=== PATIENT | female | born 1990 | race Caucasian/White ===

== ENCOUNTER → 2020-12-05 17:45 | Outpatient (BNVA) | payer MEDICAID, SELFPAY | PROVIDERS: Visit Provider Nurse Practitioner | DX: M25.571 Pain in right ankle and joints of right foot (principal); M79.89 Other specified soft tissue disorders | CPT/HCPCS: 73610 ==

== ENCOUNTER 2021-06-15 09:03 | Emergency (ER) | payer MEDICAID, SELFPAY ==
[2021-06-15 09:16] VITALS: BP 121/66; PULSE 101; RESP 20; TEMP 37.1; O2SAT 100; BMI 23.7
--- NOTE | 2021-06-15 09:21 | ED_ITS ---
HPI - Dental/Oral General: Chief complaint: Dental/Oral Stated complaint: Tooth ache Time Seen by Provider: 06/15/21 09:05 Source: patient Mode of arrival: ambulatory Limitations: no limitations History of Present Illness: Patient is a 30-year-old female presents to ED today with a complaint of a left lower toothache. Patient states the tooth has been cracked for a long time but recently over the past couple of days has become very painful. She has not noticed any swelling. Patient states she does not have a dentist. She has been taking OTC Tylenol and Motrin for discomfort. MD Complaint: tooth pain Teeth map: 1. Onset (ago): day(s) Duration: constant Severity: severe Relieving factors: nothing Exacerbating factors: chewing Context: history of dental caries, trauma (mechanism) and poor dental care Associated symptoms: Reports no associated symptoms; Denies ear or mastoid pain, fever(s) or odynophagia Treatment prior to arrival: oral analgesic Review of Systems Const: Denies: fever(s), chills, body aches, fatigue or malaise Eyes: Denies: change in vision or blurry vision ENMT: Reports: dental pain; Denies: throat pain, odynophagia, swelling of lips/tongue, oral sores, ear or mastoid pain, nasal discharge or nasal congestion Card: Denies: chest pain Resp: Denies: dyspnea GI: Denies: nausea or vomiting Musc: Denies: neck pain Skin/Breast: Denies: rash Neuro: Denies: headache(s) PFS ED PFSH: Social History Smoking and tobacco status: current every day smoker Female Reproductive History: Date of last menstrual period: 06/08/21 Physical Exam Const: COMMON NORMALS: no acute distress, patient oriented x3, no limitations, alert and well nourished GENERAL APPEARANCE: cooperative ORIENTATION/CONS CIOUSNESS: Yes awake, Yes oriented to person, Yes oriented to place and Yes oriented to time HENMT: COMMON NORMALS: normocephalic and Normal external nose present HEAD & SCALP: normal to inspection and normocephalic FACE & SINUS: normal facial exam NOSE: Normal external nose present MOUTH: Normal oral and palatal mucosa present, lip normal and tongue normal TEETH & GINGIVA: Yes poor dentition TEETH & GINGIVA IMAGES: 1. severe decay; no surrounding swelling/abscess f ormation THROAT: posterior oropharynx normal, tonsils normal and uvula midline Eye: GENERAL EYE: appearance normal, both eyes and all related structures Neck/C-Spine: COMMON NORMALS: full ROM and no lymphadenopathy Neuro: COMMON NORMALS: patient oriented x3 SENSORIUM/ORIENTATION: Yes alert, Yes oriented to person, Yes oriented to place and Yes oriented to time Course Vital Signs: Vital signs: Vital Signs Temperature 98.7 F 06/15/21 09:16 Pulse Rate 101 H 06/15/21 09:16 Respiratory Rate 20 H 06/15/21 09:16 Blood Pressure 121/66 06/15/21 09:16 Pulse Oximetry 100 06/15/21 09:16 [facility] - Dental/Oral Medical Decision Making Patient reports a possible history of . She states she did have a positive home test. Will place patient on antibiotic safe for . Recommended no NSAIDs at this time secondary to possibility for . Patient was given dental resources and recommended prompt follow-up. Will place referrals for primary care and OB at this time. Discharge Plan Discharge Patient Disposition: Home Clinical Impression: Toothache, Dental caries Condition: Stable Prescriptions: New penicillin V potassium 500 mg tablet 500 mg PO Q8H 7 Days Qty: 21 0RF No Action pantoprazole [Protonix] 40 mg tablet,delayed release (DR/EC) 40 mg PO DAILY 0RF PROSIN PO 0RF albuterol sulfate [Ventolin HFA] 90 mcg/actuation HFA aerosol inhaler 2 puff inhalation Q6H PRN (Reason: shortness of breath or wheezing) Qty: 8.5 0RF montelukast [Singulair] 10 mg tablet 10 mg PO DAILY Qty: 60 0RF Discharge Orders: Discharge ED (Routine); Ordered 06/15/21 Ordered By: Maddie Carver Patient Instructions: Dental Caries (Cavities), Toothache (ED) Coding Level of Care Code ED [facility] Supervisor for Chg Fwd Exam Expanded Problem Focused
[2021-06-15 09:33] VITALS: BP 120/68; PULSE 97; RESP 20; TEMP 37.1; O2SAT 100
--- NOTE | 2021-06-15 10:54 | DCPLANNER ---
Addendum entered by Sindhu Bloom 07/14/21 09:07: Patient had a follow up appointment scheduled for 07.05.21 with [facility] - patient did not attend appointment. Addendum entered by Sindhu Bloom 06/16/21 15:05: Patient has a follow up appointment scheduled for Monday, July 05, 2021 at 2:00 with [facility] Martha Perdomo. Clinic will call patient with appointment information. Addendum entered by Sindhu Bloom 06/15/21 11:03: assistant center manager also had message to speak with patient about getting a primary care physician. Patient stated that she wanted sql manager to make the referral to [facility], and wanted to wait on the primary care physician at this time. Original Note: assistant center manager had message to schedule a follow up appointment for patient with [facility]. assistant center manager called [facility], spoke with Melchor, gave clinic patients information. assistant center manager was told that patients information would be printed and reviewed. Clinic will call patient with appointment information.
== END 2021-06-15 09:36 | disposition home or self-care (01) ==
LOC: ER 09:39
PROVIDERS: Emergency Provider Physician Assistant
DX: K02.9 Dental caries, unspecified (principal); F17.210 Nicotine dependence, cigarettes, uncomplicated
CPT/HCPCS: 99281

== ENCOUNTER 2022-03-09 17:08 | Emergency (ER) | payer MEDICAID, SELFPAY ==
[2022-03-09 17:20] VITALS: PULSE 79; RESP 16; TEMP 36.8; O2SAT 100
--- NOTE | 2022-03-09 17:34 | ED_ITS ---
HPI - Headache General: Chief Complaint: Headache Stated Complaint: Headpain, states she has addiction problems Time Seen by Provider: 03/09/22 17:23 History of Present Illness: 31 yo female patient presents to ER with typical migraine headache. Pt states lasted 2 days and regular meds are not helping. c/o nausea but no vomiting. denies any fever. Denies any visual changes Associated symptoms: Deny chest pain, confusion, diaphoresis, fever(s), lightheadedness, malaise, pre-syncope, rash, syncope or vomiting Review of Systems Const: Denies: fever(s), chills, body aches, change in appetite, change in weight, fatigue, malaise or diaphoresis Eyes: Denies: change in vision, blurry vision, blind spots, photophobia, eye discomfort, eye discharge, eye redness, floaters or seeing flashes ENMT: Denies: throat pain, uvular edema, enlarged tonsils, odynophagia, hoarseness, mouth pain, swelling of lips/tongue, oral sores, bleeding gums, dental pain, dry mouth, ear or mastoid pain, ear discharge, change in hearing, tinnitus, disequilibrium, nasal discharge, nasal congestion, post nasal drip or sinus pain Card: Denies: chest pain, palpitations, irregular heart rhythm, edema, swelling of feet/ankles, lightheadedness, syncope, pre-syncope, dyspnea on exertion, orthopnea, leg pain with exertion or acrocyanosis Resp: Denies: dyspnea, productive cough, non-productive cough, wheezing, stridor, pain on inspiration, change in phlegm color, hemoptysis or chest congestion GI: Denies: abdominal pain, vomiting, hematemesis, dysphagia, diarrhea, constipation, GI cramping, change in bowel habits or rectal pain : Denies: flank pain, difficulty voiding, dysuria, urinary frequency, urinary urgency, urinary hesitancy or hematuria Musc: Denies: neck pain, back pain, extremity pain, extremity swelling, joint pain, joint swelling, joint redness, joint warmth or deformity Skin/Breast: Denies: rash, pruritus, erythema, sores, new lesions, changes in skin color or dry skin Neuro: Denies: numbness in extremities, weakness in extremities, sensory changes, lack of coordination, difficulty walking, frequent falls, dizziness, vertigo, confusion, behavioral changes, Slurred speech present, difficulty communicating thoughts or seizure-like activity Psych: Denies: anxiety, depression, suicidal ideation or homicidal ideation Endo: Denies: polyuria, polydipsia, tired all the time, cold intolerance, excessive sweating, flushing, hot flashes or heat intolerance Mj/Lymph: Denies: easy bruising, easy bleeding, petechiae, purpura, enlarged lymph nodes or tender lymph nodes All/Imm: Denies: urticaria, throat swelling, tongue swelling, facial swelling, acute wheezing or itchy eyes PFSH ED PFSH: Medical History Psoriasis Surgical History History of repair of hiatal hernia Family History Denies family history of Colon cancer Ovarian cancer Diabetes Heart disease Hypercholesteremia Breast cancer Hypertension Uterine cancer Thyroid disease Stroke Social History Smoking and tobacco status: current every day smoker Female Reproductive History: Date of last menstrual period: 06/08/21 Physical Exam Const: COMMON NORMALS: no acute distress, patient oriented x3, healthy appearing, alert and well nourished GENERAL APPEARANCE: cooperative, comfortable, well kempt and well developed; not ill appearing ORIENTATION/CONSCIOUSNESS: Yes awake, Yes oriented to person, Yes oriented to place and Yes oriented to time HENMT: COMMON NORMALS: normocephalic, atraumatic, hearing grossly normal bilaterally, external ears normal, EAC's normal, TM's normal bilaterally, Normal external nose present, Normal nasal mucous membranes and turbinates present and moist oral mucous membranes HEAD & SCALP: normal to inspection, normocephalic and atraumatic FACE & SINUS: normal facial exam, sinuses nontender and face symmetric NOSE: Normal external nose present, Normal nares present, Normal nasal mucous membranes and turbinates present, No nasal discharge present and Abnormal external nose present EXTERNAL EAR: Yes external ears normal and Yes mastoids normal EXTERNAL AUDITORY CANAL: EAC's normal TYMPANIC MEMBRANE: TM's normal bilaterally MOUTH: Normal oral and palatal mucosa present, lip normal, tongue normal and Normal salivary glands and ducts present THROAT: no uvular edema Eye: COMMON NORMALS: Equal, round and reactive pupils present, EOMs intact bilaterally, conjunctivae normal, no scleral icterus and no papilledema GENERAL EYE: appearance normal, both eyes and all related structures EYELID: eyelids normal CONJUNCTIVA: Yes conjunctivae normal SCLERA: sclerae normal CORNEA: Yes corneas normal PUPIL: Yes Equal, round and reactive pupils present DIRECT OPHTHALMOSCOPY: Yes no papilledema Neck/C-Spine: COMMON NORMALS: full ROM, no lymphadenopathy, supple, no meningeal signs, no JVD and Thyroid normal GENERAL: Yes normal visual inspection and Yes trachea midline THYROID: Thyroid normal CERVICAL SPINE: Yes cervical ROM normal Lymph: LYMPHATIC: no lymphadenopathy noted and no lymphedema noted Chest: COMMONS NORMALS: normal inspection of the chest and normal palpation of entire chest wall Resp: COMMON NORMALS: normal respiratory effort, No retractions, No use of accessory muscles and clear to auscultation bilaterally EFFORT & INSPECTION: Yes able to speak in complete sentences and Yes symmetric chest movement AUSCULTATION: clear to auscultation bilaterally Cardio: COMMON NORMALS: no JVD, regular rate and regular rhythm RATE: regular rate RHYTHM: regular rhythm GI: COMMON NORMALS: Normal to inspection, nondistended, normoactive bowel sounds present, Soft to palpation, non-tender, No hepatosplenomegaly present, no masses and no bruits INSPECTION: Yes normal to inspection AUSCULTATION: Yes normoactive bowel sounds PALPATION: Yes Soft to palpation and Yes No hepatosplenomegaly present PERCUSSION: normal to percussion RECTAL EXAM: deferred : COMMON NORMALS: Yes no CVA tenderness, Yes normal external appearance, Yes normal appearance of the vagina, Yes normal appearance of the cervix, Yes normal bimanual exam, Yes No adnexal tenderness and Yes no masses BLADDER/KIDNEY EXAM: Yes no CVA tenderness BIMANUAL EXAM - VAGINA & UTERUS: Yes normal bimanual exam Back/Pelvis: COMMON NORMALS: no CVA tenderness, thoracic and lumbar spine normal to inspection, no thoracic nor lumbar tenderness, thoraco-lumbar ROM normal and straight leg raise negative bilaterally THORACIC SPINE/UPPER BACK: Yes normal to inspection LUMBAR SPINE/LOWER BACK: Yes normal to inspection Extremity: COMMON NORMALS: normal to inspection, full ROM and capillary refill normal GENERAL: Yes normal exam except as noted Neuro: COMMON NORMALS: patient oriented x3, CN's II-XII intact bilaterally, moves all extremities, no focal motor deficits, no sensory deficits noted, deep tendon reflexes 2+ bilaterally and gait normal SENSORIUM/ORIENTATION: Yes alert, Yes oriented to person, Yes oriented to place and Yes oriented to time MENINGEAL SIGNS: Yes no meningeal signs CRANIAL NERVES: Yes CN normal except as noted SPEECH: speech normal GAIT: Yes Normal gait present SENSORY EXAM: Yes extremities MOTOR EXAM: 5/5 motor strength present throughout Psych: COMMON NORMALS: mental status grossly normal, Normal thought process present, cooperative, normal affect, speech normal, activity/motor behavior normal, denies hallucinations, denies homicidal ideation and denies suicidal ideation APPEARANCE: Yes grossly normal and Yes well kempt ATTITUDE: Yes calm ACTIVITY/MOTOR BEHAVIOR: Yes appropriate eye contact SPEECH: Yes normal speech THOUGHT PROCESS: Normal thought process present THOUGHT CONTENT: Yes Normal thought content present ATTENTION/CONCENTRATION: Yes attention grossly intact MEMORY/COGNITION: Yes memory grossly intact INSIGHT: Good insight present (Psych) JUDGEMENT: Good judgement present (Psych) Skin: COMMON NORMALS: no rashes or lesions noted, no wounds, turgor normal, no jaundice, no petechiae and no mottling GENERAL SKIN EXAM: no rashes or lesions noted and turgor normal Course Vital Signs: Vital signs: Vital Signs Temperature 98.3 F 03/09/22 17:20 Pulse Rate 79 03/09/22 17:20 Respiratory Rate 16 03/09/22 17:20 Pulse Oximetry 100 03/09/22 17:20 Oxygen Delivery Me thod 03/09/22 17:20 MDM - Headache Medical Decision Making Patient is well appearing non toxic and in no acute distress. 31 yo female patient presents to ER with typical migraine headache. Pt states lasted 2 days and regular meds are not helping. c/o nausea but no vomiting. denies any fever. Denies any visual changes Pt states this is her typicla migraine heachache. Pt has no focal neuro deficits noted. Toradol zofran and decadron given IM and patient had good lcinical improvement with this. i discussed return precautions as well as home care and follow up Differential Diagnosis Likely migraine, tension headache, subarachnoid hemorrhage, headache, meningitis, sinusitis and postconcussion syndrome Lab Data Laboratory Results HCG, Qual Negative (Negative) 03/09/22 17:41 Urine Opiates Screen Negative ng/mL (Negative) 03/09/22 17:41 Ur Barbiturates Screen Negative ng/mL (Negative) 03/09/22 17:41 Ur Phencyclidine Scrn Negative ng/mL (Negative) 03/09/22 17:41 Ur Amphetamines Screen Negative ng/mL (Negative) 03/09/22 17:41 U Benzodiazepines Scrn Negative ng/mL (Negative) 03/09/22 17:41 Urine Cocaine Screen Negative ng/mL (Negative) 03/09/22 17:41 U Marijuana (THC) Screen Negative ng/mL (Negative) 03/09/22 17:41 Discharge Plan Discharge Patient Disposition: Home Clinical Impression: Migraine Condition: Stable Prescriptions: No Action methylprednisolone [Medrol (Randell)] 4 mg tablets,dose pack See Rx Instructions PO PER PKG DIR Qty: 21 0RF Rx Instructions: PO PER PKG DIR clobetasol 0.05 % ointment 1 applic topical BID 14 Days Qty: 60 0RF Discharge Orders: Discharge ED (Routine); Ordered 03/09/22 Ordered By: Shadia Pham Referrals: Tatyana Shah FNP [Primary Care Provider] - Discharge Diet: Advance as tolerated Discharge Activity: Resume usual activity Patient Instructions: Opioid Safety, Pain Management Activity Restrictions/Additional Instructions: Please return to ER with any worsening of symptoms Director Of Instruction will call you for referral Coding Level of Care Code ED Wound/Ostomy Nurse for Maria Guadalupe Pollard
[2022-03-09 17:53] LABS: HCG Qualitative Urine. Negative (Negative)
[2022-03-09] MEDS: ketorolac 60 mg/2 mL INJ IM (18:15)
[2022-03-09] MEDS: ondansetron 2 mg/ML SDV 2 mL 4 MG IM (18:15)
[2022-03-09] MEDS: dexamethasone 10 mg/mL INJ IM (18:15)
[2022-03-09 18:16] LABS: Amphetamines Screen Urine Negative (Negative); Barbiturates Screen Urine Negative (Negative); Benzodiazepines Screen Urine Negative (Negative); Cocaine Screen Urine Negative (Negative); Opiate Screen Urine Negative (Negative); PCP Screen Urine Negative (Negative); THC Screen Urine Negative (Negative)
== END 2022-03-09 18:37 | disposition home or self-care (01) ==
PROVIDERS: Emergency Provider Registered Nurse; PCP Nurse Practitioner Family
DX: G43.909 Migraine, unspecified, not intractable, without status migrainosus (principal); F17.210 Nicotine dependence, cigarettes, uncomplicated
CPT/HCPCS: 80306; 81025; 96372; 99284; J1100; J1885; J2405

== ENCOUNTER 2022-05-15 17:34 | Emergency (ER) | payer MEDICAID, SELFPAY ==
[2022-05-15] VITALS (7 sets, daily range): BP systolic 110–126; BP diastolic 58–84; PULSE 84–123; RESP 16–20; TEMP 37.1; O2SAT 95–97
--- NOTE | 2022-05-15 17:41 | ED_ITS ---
HPI - Altered Mental Status General: Chief Complaint: Altered Mental Status Stated Complaint: UNRESPONSIVE Time Seen by Provider: 05/15/22 17:41 Limitations: other History of Present Illness: Ms. Betancur is a 31-year-old lady without significant past medical history presented to the emergency department due to episode of unresponsiveness. She reports being at her baseline health and was watching TV. Her good friend, who was at bedside, returned from the store found her unresponsive with raspy respirations. She did respond to stimuli and since that time has gradually improved. No reported shaking, tongue biting, loss of consciousness. Patient currently feels back to baseline. She reports 1 similar episode in the past. No other specific changes in health, exacerbating, or alleviating factors identified. Onset (ago): minute(s) Review of Systems General: Reports: 10 or more systems reviewed and unremarkable except in HPI and below PFSH ED PFSH: Medical History Psoriasis Surgical History History of repair of hiatal hernia Family History Denies family history of Colon cancer Ovarian cancer Diabetes Heart disease Hypercholesteremia Breast cancer Hypertension Uterine cancer Thyroid disease Stroke Social History Smoking and tobacco status: current every day smoker Alcohol intake: former Year of sobriety/quit date alcohol: 2015 Female Reproductive History: Date of last menstrual period: 04/14/22 Physical Exam Const: COMMON NORMALS: patient oriented x3 and alert GENERAL APPEARANCE: cooperative and well developed HENMT: COMMON NORMALS: normocephalic and atraumatic HEAD & SCALP: normocephalic and atraumatic THROAT: posterior oropharynx normal Eye: COMMON NORMALS: conjunctivae normal CONJUNCTIVA: Yes conjunctivae normal SCLERA: sclerae normal Neck/C-Spine: COMMON NORMALS: supple GENERAL: Yes trachea midline Resp: COMMON NORMALS: normal respiratory effort and clear to auscultation bilaterally EFFORT & INSPECTION: Yes able to speak in complete sentences AUSCULTATION: clear to auscultation bilaterally Cardio: COMMON NORMALS: regular rate and regular rhythm RATE: regular rate RHYTHM: regular rhythm GI: COMMON NORMALS: Soft to palpation PALPATION: Yes Soft to palpation and No Tenderness to palpation present (GI) PERCUSSION: normal to percussion Extremity: GENERAL: Yes normal exam except as noted and No edema Neuro: COMMON NORMALS: patient oriented x3, CN's II-XII intact bilaterally, m oves all extremities, no focal motor deficits and no sensory deficits noted SENSORIUM/ORIENTATION: Yes alert and No Orientation impaired Psych: COMMON NORMALS: mental status grossly normal and Normal thought process present THOUGHT PROCESS: Normal thought process present Course Vital Signs: Vital signs: Vital Signs Temperature 98.7 F 05/15/22 17:35 Pulse Rate 98 05/15/22 20:31 Respiratory Rate 16 05/15/22 20:31 Blood Pressure 119/84 05/15/22 20:31 Pulse Oximetry 96 05/15/22 20:31 Oxygen Delivery Me thod 05/15/22 19:06 MDM - Altered Mental Status Medical Decision Making 31-year-old female presenting with unresponsive episode with improvement prior to reaching the emergency department. No focal neurologic deficits. Patient reports 1 similar prior episode. EKG notable for sinus tachycardia, normal intervals and axis, no STEMI. Labs with leukocytosis which may be reactive, normal hemoglobin. Metabolic panel with mild transaminitis. Negative range 2-hour delta troponin. No UTI. Toxic ingestions negative. UDS positive for opioids. Patient does endorse relapse a few days ago but denies substance abuse today. Negative head CT. Chest x-ray with no lobar consolidation or pneumothorax. Most likely etiology of symptoms is seizure-like episode. Given history of similar I will initiate medications and refer for further neurologic evaluation. Seizure precautions discussed. The results of ED evaluation were discussed with the patient including prescriptions and/or symptomatic cares (if applicable) including appropriate and responsible use, followup plan, and return precautions. The patient verbalized understanding and felt safe for discharge. Medical Records I reviewed the patient's medical records. Lab Data I reviewed the patient's lab results. 05/15/22 17:55 05/15/22 17:55 Radiology Impressions Chest X-Ray 05/15/22 17:44 IMPRESSION: No acute findings. Head CT 05/15/22 18:31 IMPRESSION: No acute intracranial abnormality. Laboratory Results WBC 16.7 10^3/uL (4.0-10.0) H 05/15/22 17:55 RBC 4.37 10^6/uL (4.1-5.3) 05/15/22 17:55 Hgb 12.9 g/dL (11.5-15.3) 05/15/22 17:55 Hct 42.0 % (37.0-47.0) 05/15/22 17:55 MCV 96.1 fl (81-99) 05/15/22 17:55 MCH 29.5 pg (28.0-34.0) 05/15/22 17:55 MCHC 30.7 g/dL (30.0-36.0) 05/15/22 17:55 RDW 14.3 % (12.1-15.1) 05/15/22 17:55 Plt Count 182 10^3/cmm (130-400) 05/15/22 17:55 MPV 10.9 fL (7.4-10.4) H 05/15/22 17:55 Neut % (Auto) 90.4 % 05/15/22 17:55 Lymph % (Auto) 5.5 % 05/15/22 17:55 [place] % (Auto) 3.2 % 05/15/22 17:55 Eos % (Auto) 0.1 % 05/15/22 17:55 Baso % (Auto) 0.2 % 05/15/22 17:55 Neut # (Auto) 15.10 10^3/uL (1.8-7.7) H 05/15/22 17:55 Lymph # (Auto) 0.9 10^3/uL (0.8-4.8) 05/15/22 17:55 [place] # (Auto) 0.5 10^3/uL (0.2-0.9) 05/15/22 17:55 Eos # (Auto) 0.0 10^3/uL (0.0-0.8) 05/15/22 17:55 Baso # (Auto) 0.0 10^3/uL (0.0-0.1) 05/15/22 17:55 Nucleated RBC % (auto) 0 % 05/15/22 17:55 Nucleated RBCs # 0.0 /100WBC 05/15/22 17:55 D-Dimer 0.50 ug/mIFEU (0-0.59) 05/15/22 17:55 Sodium 139 mmol/L (136-145) 05/15/22 17:55 Potassium 4.8 mmol/L (3.5-5.1) 05/15/22 17:55 Chloride 103 mmol/L (98-107) 05/15/22 17:55 Carbon Dioxide 24 mmol/L (22-29) 05/15/22 17:55 Anion Gap 16.8 (5-19) 05/15/22 17:55 BUN 12 mg/dL (6-20) 05/15/22 17:55 Creatinine 0.8 mg/dL (0.5-0.9) 05/15/22 17:55 GFR Calculation 83.1 mL/min (90-130) L 05/15/22 17:55 Glucose 139 mg/dL (65-115) H 05/15/22 17:55 Calculated Osmolality 290 mOsm/kg (285-295) 05/15/22 17:55 Calcium 9.2 mg/dL (8.5-10.5) 05/15/22 17:55 Total Bilirubin 0.2 mg/dL (0.15-1.2) 05/15/22 17:55 AST 76 U/L (0-32) H 05/15/22 17:55 ALT 74 U/L (0-33) H 05/15/22 17:55 Alkaline Phosphatase 107 U/L (35-105) H 05/15/22 17:55 Troponin T Baseline 17 ng/L (0-10) H 05/15/22 17:55 Troponin T 120 Minute 16.08 ng/L (0-10) H 05/15/22 19:48 Delta Troponin T -0.92 ABS# (0-10) L 05/15/22 19:48 Total Protein 7.3 g/dL (6.6-8.7) 05/15/22 17:55 Albumin 4.6 g/dL (3.5-5.2) 05/15/22 17:55 Globulin 2.7 g/dL (1.3-4.6) 05/15/22 17:55 TSH 2.59 uIU/mL (0.27-4.20) 05/15/22 17:55 Prolactin 62.31 ng/mL (4.8-23.3) H 05/15/22 17:55 Prolactin Cancelled 05/15/22 17:55 HCG, Qual Negative (Negative) 05/15/22 18:28 Urine Color Yellow (Yellow) 05/15/22 18:28 Urine Appearance Sl hazy (CLEAR) A 05/15/22 18:28 Urine pH 5 (5-7) 05/15/22 18:28 Ur Specific [place] 1.030 (1.005-1.030) 05/15/22 18:28 Urine Protein Trace (Negative) 05/15/22 18: Urine Glucose (UA) 4+ (Normal) H 05/15/22 18:28 Urine Ketones 1+ (Negative) H 05/15/22 18: Urine Blood 2+ (Negative) H 05/15/22 18: Urine Nitrate Negative (Negative) 05/15/22 18: Urine Bilirubin Neg (Negative) 05/15/22 18: Urine Urobilinogen Norm mg/dL (Negative) 05/15/22 18: Ur Leukocyte Esterase Negative (Negative) 05/15/22 18:28 Urine RBC 0-4 /hpf (0-2) H 05/15/22 18:28 Urine WBC 5-10 /hpf (0-5) H 05/15/22 18:28 Ur Squamous Epith Cells 10-15 /hpf (0-5) H 05/15/22 18:28 Amorphous Sediment 1+ /hpf 05/15/22 18:28 Urine Bacteria Trace /hpf (NONE) 05/15/22 18:28 Salicylates < 0.3 mg/dL (3-10) L 05/15/22 17:55 Urine Opiates Screen Positive ng/mL (Negative) H 05/15/22 18:28 Acetaminophen < 5.0 ug/mL (10-30) L 05/15/22 17:55 Ur Barbiturates Screen Negative ng/mL (Negative) 05/15/22 18:28 Ur Phencyclidine Scrn Negative ng/mL (Negative) 05/15/22 18:28 Ur Amphetamines Screen Negative ng/mL (Negative) 05/15/22 18:28 U Benzodiazepines Scrn Negative ng/mL (Negative) 05/15/22 18:28 Urine Cocaine Screen Negative ng/mL (Negative) 05/15/22 18:28 U Marijuana (THC) Screen Negative ng/mL (Negative) 05/15/22 18:28 Ethyl Alcohol < 10 mg/dL (0-10) 05/15/22 17:55 Discharge Plan Discharge Patient Disposition: Home Clinical Impression: Altered mental status, Seizure, Tachycardia, Leukocytosis, Abnormal transaminases Condition: Stable Prescriptions: New Keppra 500 mg tablet 500 mg PO BID Qty: 60 2RF No Action Paxlovid (EUA) 300 mg (150 mg x 2)-100 mg tablets,dose pack See Rx Instructions PO .COMPLEX Rx Instructions: take TWO 150 mg tablets of nirmatrelvir with ONE 100 mg tablet of ritonavir twice daily for 5 days PO albuterol sulfate 90 mcg/actuation aero powdr breath act w/sensor 2 inh inhalation Q6H promethazine 12.5 mg tablet 12.5 mg PO Q6H PRN azithromycin 250 mg tablet See Rx Instructions PO .COMPLEX Qty: 6 0RF Rx Instructions: For 250 mg dose pack: take 500 mg today (day 1), then 250 mg for 4 days (days 2-5) PO prednisone 20 mg tablet 20 mg PO DAILY 7 Days Qty: 7 0RF ibuprofen 800 mg tablet 800 mg PO Q8H PRN (Reason: pain) Qty: 60 3RF Discharge Orders: Discharge ED (Routine); Ordered 05/15/22 Ordered By: Michael José Referrals: Tatyana Shah FNP [Primary Care Provider] - Discharge Diet: Usual diet Patient Instructions: Levetiracetam (By mouth) (Keppra, Keppra XR, Spritam), Altered Mental Status (ED), New-Onset Seizure in Adults (ED) Activity Restrictions/Additional Instructions: Thank you for visiting the emergency department. You were seen and evaluated for episode of altered mental status. The exact cause of your symptoms is uncle ar however may be related to seizure given history of similar episode. I will start you on antiseizure medication. I will also refer you for outpatient testing and neurology follow-up. 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 For general seizure precautions do not drive until seizure-free for 6 months, do not swim in a swimming pool or bathe in a bath tub with standing water, do not operate machinery, do not climb tall objects, do not cook over open flames, do not perform tasks that otherwise would be dangerous if you were to have another seizure. Please follow-up with your primary care provider. Return to the emergency department for anything that you are concerned about and feel needs emergency department evaluation. Coding Level of Care Code ED Aircraft Powertrain Repairer for Maria Guadalupe Pollard
--- NOTE | 2022-05-15 17:44 | ECG_ITS ---
[facility] Test Date: 2022-05-15 Pat Name: Amanda Betancur Department: Room: Gender: Female Yoga Teacher: : 1990 Requested By: Michael José Order Number: [id number] Arzate MD: Edgar Jiang M.D. Measurements Intervals [place] Rate: 115 P: 49 GA: 108 QRS: 56 QRSD: 92 T: 46 QT: 321 QTc: 445 Interpretive Statements SINUS TACHYCARDIA WITH SHORT GA INTERVAL MINIMAL ST DEPRESSION [0.025+ mV ST DEPRESSION] ABNORMAL RHYTHM ECG No previous ECG available for comparison Electronically Signed On 05-15-2022 19:55:20 FRONT OFFICE SUPERVISOR by Edgar Jiang M.D. [email or web address] county general hospitalEMISPHERE TECHNOLOGIESthe christ hospitalWanjee Operation and Maintenance/store/OM/[id number]
--- NOTE | 2022-05-15 17:44 | XRR_ITS ---
PROCEDURE INFORMATION: Exam: XR Chest Exam date and time: 05/15/2022 5:55 PM Age: 31 years old Clinical indication: Other: Syncope episodes TECHNIQUE: Imaging protocol: Radiologic exam of the chest. Views: 1 view. COMPARISON: No relevant prior studies available. FINDINGS: Lungs: Unremarkable. No consolidation. Pleural spaces: Unremarkable. No pleural effusion. No pneumothorax. Heart/Mediastinum: Unremarkable. No cardiomegaly. Bones/joints: Unremarkable. XR/XR chest 1V portable [id number] IMPRESSION: No acute findings.
[2022-05-15 18:08] LABS: Basophils % 0.2 %; Eosinophils % 0.1 %; Hemoglobin 12.9 g/dL (11.5-15.3); Lymphocytes # 0.9 10^3/uL (0.8-4.8); Lymphocytes % 5.5 %; Mean Corpuscular HGB Conc 30.7 g/dL (30.0-36.0); Mean Corpuscular Hemoglobin 29.5 pg (28.0-34.0); Mean Corpuscular Volume 96.1 fl (81-99); Mean Platelet Volume 10.9 fL (7.4-10.4); Monocytes # 0.5 10^3/uL (0.2-0.9); Monocytes % 3.2 %; Neutrophils % 90.4 %; Nucleated Red Blood Cells % 0 %; Platelet Count 182 10^3/cmm (130-400); Red Blood Count 4.37 10^6/uL (4.1-5.3); Red Cell Distribution Width 14.3 % (12.1-15.1); White Blood Count 16.7 10^3/uL (4.0-10.0)
[2022-05-15] MEDS: sodium chloride 0.9% 1,000 ML 999 ML IV (18:20)
[2022-05-15 18:31] LABS: Troponin(5th) Baseline 17 ng/L (0-10)
--- NOTE | 2022-05-15 18:31 | CTR_ITS ---
PROCEDURE INFORMATION: Exam: CT Head Without Contrast Exam date and time: 05/15/2022 6:49 PM Age: 31 years old Clinical indication: Alteration of consciousness; Other: High blood sugar; Additional info: Episode of AMS TECHNIQUE: Imaging protocol: Computed tomography of the head without contrast. Radiation optimization: All CT scans at this facility use at least one of these dose optimization techniques: automated exposure control; mA and/or kV adjustment per patient size (includes targeted exams where dose is matched to clinical indication); or iterative reconstruction. Other protocol: This patient has received 0 known CTs and 0 known cardiac nuclear medicine studies in the 12 months prior to the current study. COMPARISON: No relevant prior studies available. RADIATION DOSE METRICS: Total DLP (mGy-cm): 1008.08 FINDINGS: Brain: Normal. No hemorrhage. Unremarkable white matter. No mass effect. Cerebral ventricles: No ventriculomegaly. Paranasal sinuses: Visualized sinuses are unremarkable. No fluid levels. Mastoid air cells: Visualized mastoid air cells are well aerated. Bones/joints: Unremarkable. No acute fracture. Soft tissues: Unremarkable. CT/CT head wo con* [id number] IMPRESSION: No acute intracranial abnormality.
[2022-05-15 18:34] LABS: Acetaminophen < 5.0 ug/mL (10-30); Alanine Aminotransferase 74 U/L (0-33); Albumin Level 4.6 g/dL (3.5-5.2); Alcohol Level < 10 mg/dL (0-10); Alkaline Phosphatase 107 U/L (35-105); Blood Urea Nitrogen 12 mg/dL (6-20); Calcium 9.2 mg/dL (8.5-10.5); Carbon Dioxide 24 mmol/L (22-29); Chloride 103 mmol/L (98-107); Creatinine Clr Calc Pharmacy 92.0365; Globulin 2.7 g/dL (1.3-4.6); Glomerular Filtration Rate 83.1 mL/min (90-130); Glucose 139 mg/dL (65-115); Osmolality Calculated 290 mOsm/kg (285-295); Prolactin 62.31 ng/mL (4.8-23.3); Salicylate < 0.3 mg/dL (3-10); Sodium 139 mmol/L (136-145); Thyroid Stimulating Hormone 2.59 uIU/mL (0.27-4.20); Total Bilirubin 0.2 mg/dL (0.15-1.2); Total Protein 7.3 g/dL (6.6-8.7)
[2022-05-15 18:35] LABS: Anion Gap 16.8 (5-19); Aspartate Amino Transferase 76 U/L (0-32); Potassium 4.8 mmol/L (3.5-5.1)
--- NOTE | 2022-05-15 18:54 | PC.NURSE ---
report given to AMBAR Evans to assume care
[2022-05-15 18:59] LABS: Amphetamines Screen Urine Negative (Negative); Barbiturates Screen Urine Negative (Negative); Benzodiazepines Screen Urine Negative (Negative); Cocaine Screen Urine Negative (Negative); Opiate Screen Urine Positive (Negative); PCP Screen Urine Negative (Negative); THC Screen Urine Negative (Negative)
[2022-05-15 19:00] LABS: Add Urine Microscopic? YES; Amorphous Sediment Urine 1+ /hpf; Bacteria Urine TRACE /hpf; Bilirubin Urine Neg (Negative); Blood Urine 2+ (Negative); Glucose Urine UA 4+ (Normal); Ketones Urine 1+ (Negative); Leukocyte Esterase Urine Negative (Negative); Nitrate Urine Negative (Negative); Protein Urine Trace (Negative); RBC Urine 0-4 /hpf (0-2); Urine Appearance SL Hazy (CLEAR); Urine Color Yellow (Yellow); Urobilinogen Urine Norm (Negative); pH Urine 5 (5-7)
[2022-05-15 19:01] LABS: Add Urine Culture? No; HCG Qualitative Urine. Negative (Negative)
--- NOTE | 2022-05-15 19:07 | PC.NURSE ---
Report from AMBAR Perkins. Pt resting quietly. Ice chips provided with MD approval. No further needs at this time.
--- NOTE | 2022-05-15 20:01 | ECG_ITS ---
[facility] Test Date: 2022-05-15 Pat Name: Amanda Betancur Department: Room: Gender: Female Electrical/Instrument Technician: : 1990 Requested By: Michael José Order Number: [id number] Arzate MD: Edgar Jiang M.D. Measurements Intervals [place] Rate: 82 P: 61 NM: 145 QRS: 55 QRSD: 90 T: 37 QT: 357 QTc: 419 Interpretive Statements SINUS RHYTHM Compared to ECG 05/15/2022 17:54:02 Sinus tachycardia no longer present Short NM interval no longer present ST (T wave) deviation no longer present Electronically Signed On 05-15-2022 22:50:41 TUBE FILLER by Edgar Jiang M.D. [email or web address] [id number]
[2022-05-15 20:13] LABS: Troponin 5 2HR 16.08 ng/L (0-10)
[2022-05-15 20:14] LABS: Troponin 5 2HR Delta -0.92 ABS# (0-10)
[2022-05-15] MEDS: levETIRAcetam 500 mg Tablet PO (20:31)
--- NOTE | 2022-05-16 10:17 | DCPLANNER ---
Addendum entered by Sindhu Bloom 07/12/22 09:37: Patient had a follow up appointment scheduled with neurology - patient did not attend appointment Addendum entered by Sindhu Bloom 06/28/22 07:59: Patient had a follow up appointment at neurology - patient did attend appointment Addendum entered by Sindhu Bloom 05/25/22 16:37: Patient has a follow up appointment scheduled for Monday, July 11, 2022 at 10:[address] Bui at neurology. Clinic will call patient with appointment information. Patient has a follow up appointment scheduled for Tuesday, May 31, 2022 at 10:30 for an outpatient EEG. Clinic will call patient with appointment information. Original Note: manager of case had message to schedule a follow up appointment for patient with neurology. manager of case sent patients information to the front office staff at neurology. Patients information will be printed and reviewed. Clinic will call patient with appointment information. manager of case also had message to schedule an outpatient EEG for patient. manager of case faxed signed order to neurology, who will call patient with appointment information.
== END 2022-05-15 20:33 | disposition home or self-care (01) ==
PROVIDERS: Emergency Provider Emergency Medicine; PCP Nurse Practitioner Family
DX: R41.82 Altered mental status, unspecified (principal); R56.9 Unspecified convulsions; R00.0 Tachycardia, unspecified; D72.829 Elevated white blood cell count, unspecified; R74.01 Elevation of levels of liver transaminase levels; F17.210 Nicotine dependence, cigarettes, uncomplicated
CPT/HCPCS: 70450; 71045; 80053; 80306; 80307; 81001; 81025; 84146; 84443; 84484; 85025; 85378; 93005; 96360; 99285; J7030

== ENCOUNTER 2022-06-09 22:24 | Emergency (ER) | payer MEDICAID, SELFPAY ==
[2022-06-09 22:28] VITALS: BP 167/81; PULSE 81; RESP 16; TEMP 36.9; O2SAT 99
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
== END 2022-06-10 00:13 | disposition home or self-care (01) ==
PROVIDERS: Emergency Provider Emergency Medicine; PCP Family Medicine
DX: T74.21XA Adult sexual abuse, confirmed, initial encounter (principal); F17.210 Nicotine dependence, cigarettes, uncomplicated; Y07.9 Unspecified perpetrator of maltreatment and neglect
CPT/HCPCS: 99283